=== PATIENT | male | born 1985 | race Caucasian/White ===

== ENCOUNTER 2017-11-02 01:20 | Emergency (ER) | payer OTHER ==
[~2017-11-02] VITALS: Ht 190.5 cm; Wt 79.4 kg
[2017-11-02] MEDS ORDERED: Cipro500 MG PO (03:05)
== END 2017-11-02 03:25 | disposition home or self-care (01) ==
LOC: ER 01:20
DX: S91.134A Puncture wound without foreign body of right lesser toe(s) without damage to nail, initial encounter (principal); W22.8XXA Striking against or struck by other objects, initial encounter; Z87.891 Personal history of nicotine dependence
CPT/HCPCS: 90471; 90714; 99283

== ENCOUNTER 2018-01-25 07:25 | Emergency (ER) | payer OTHER ==
[~2018-01-25] VITALS: Ht 190.5 cm; Wt 81.7 kg
[~2018-01-25 07:25] MED LIST: Cipro500 MG PO
[2018-01-25] MEDS ORDERED: ERYT1OIN RIGHTEYE (07:49)
== END 2018-01-25 08:08 | disposition home or self-care (01) ==
LOC: ER 07:25
DX: S05.01XA Injury of conjunctiva and corneal abrasion without foreign body, right eye, initial encounter (principal); Z87.891 Personal history of nicotine dependence; X58.XXXA Exposure to other specified factors, initial encounter; Y93.89 Activity, other specified
CPT/HCPCS: 99282